=== PATIENT | female | born 1955 | race Caucasian/White ===

== ENCOUNTER 2024-02-20 22:10 | Inpatient (IN) | payer MEDICARE, BC, SELFPAY ==
[2024-02-20] VITALS (8 sets, daily range): BP systolic 122–138; BP diastolic 55–90; BMI 23.2; BMI 22.2
[2024-02-20 17:05] LABS: % Basophils 0.7 % (0-2); % Eosinophils 1.2 % (0-6); % Immature Granulocytes 0.4 % (0-0.5); % Lymphocytes 25.1 % (20.5-51.1); % Monocytes 9.5 % (1.7-9.3); % Neutrophils 63.1 % (42.2-75.2); Absolute Basophils 0.1 10^3/uL (0-0.2); Absolute Eosinophils 0.1 10^3/uL (0-0.7); Absolute Lymphocytes 1.9 10^3/uL (1.2-3.4); Absolute Monocytes 0.7 10^3/uL (0.1-0.6); Absolute Neutrophils 4.9 10^3/uL (1.4-6.5); Hematocrit 30.8 % (37.0-47.0); Hemoglobin 10.8 g/dL (12.0-16.0); Mean Corp Hgb Conc. 35.1 g/dL (33.0-37.0); Mean Corpuscular Hgb 30.9 pg (27.0-31.0); Mean Platelet Volume 8.4 fL (7.4-10.4); Nucleated Red Blood Cells % 0 %; Platelet Count 365 10^3/uL (130-400); Red Cell Dist. Width 15.9 % (11.5-14.5); White Blood Cell Count 7.7 10^3/uL (4.8-10.8)
--- NOTE | 2024-02-20 17:27 | ED.GENMED ---
History of Present Illness
General
Chief Complaint: Fainting/Passed Out
Time Seen by Provider: 02/20/24 17:11
History of Present Illness
History of Present Illness:
Patient is a 68-year-old woman with history of hypertension, hypothyroidism presenting to the emergency department for syncopal event. Patient states that she was walking at the liquor store when she thought she tripped and fell. However
bystanders stated that patient passed out. Bystanders brought her to the bench. While they were talking to her patient had another syncopal event. Patient denies any lightheadedness dizziness tunnel vision. No numbness tingling chest pain
palpitations or weakness. This is never happened to her before. She does state that she feels a little dehydrated but denies any positional lightheadedness or dizziness today. At this time patient is back to her usual state of health. She does
state that she drinks 3 drinks a day but has not had any today. She does not feel that she is in withdrawal. No drug use. No nausea vomiting melena or hematochezia. She did not hit her head with the syncopal event. She is not on blood thinners.
Phy Exam
Physical Exam
Physical Exam:
GENERAL: in no acute distress
HEENT: normocephalic, extraocular movements intact, dry oral mucosa
NECK: normal inspection
RESPIRATORY: no respiratory distress, clear to auscultation bilaterally
CARDIOVASCULAR: regular rate and rhythm
ABDOMEN/: soft, non-distended, non-tender to palpation, no rebound or guarding
EXTREMITIES: non-tender, no edema/swelling
NEUROLOGIC: alert and oriented x 3, cranial nerves II-XII intact, right upper extremity strength 5/5, left upper extremity strength 5/5, right lower extremity strength 5/5, left lower extremity strength 5/5, normal sensation to light touch, normal
[id number] and lnkk-uk-[id number], gait not tested formally
SKIN: warm
Course
Orders/Labs/Results
Orders:
Orders
02/20/24 16:41
Electrocardiogram (*1) Urgent
Reason for Study: Syncope
EKG- Treatment ONCE
02/20/24 16:52
Complete Blood Count/With Diff Urgent
02/20/24 18:18
Comprehensive Metabolic Panel Urgent
Troponin I Urgent
Abnormal Lab Results
02/20/24
16:52
RBC 3.50 L 10^6/uL
(4.20-5.40)
Hgb 10.8 L g/dL
(12.0-16.0)
Hct 30.8 L %
(37.0-47.0)
RDW 15.9 H %
(11.5-14.5)
Absolute Monos (auto) 0.7 H 10^3/uL
(0.1-0.6)
Monocytes % 9.5 H %
(1.7-9.3)
02/20/24 16:52
Vital Signs
Initial and Last Documented VS:
Initial Vital Signs
BP
130/60
02/20/24 16:40
Last Documented Vital Signs
Temp Pulse Resp BP Pulse Ox
97.6 F 85 12 133/55 100
02/20/24 16:43 02/20/24 17:45 02/20/24 17:45 02/20/24 17:00 02/20/24 16:43
MDM/Problems Addressed
Differential Diagnosis Includes:
Patient is a 68-year-old woman with history of hypertension, hypothyroidism presenting to the emergency department with a syncopal event. Vitals are unremarkable and exam does show dry oral mucosa with no neurodeficits. Patient does appear
dehydrated on exam but denies any prodrome to suggest orthostatic syncope. Given that she did not have any prodrome with both syncopal events concern for cardiac etiology. History and exam are consistent with vasovagal. Blood work obtained prior
to elevation is unremarkable. EKG per my interpretation with no prolonged QT, delta waves, arrhythmia. Patient will need admission for monitoring.
*Critical Care Note
Total Time (30-74mins, 75-104mins- exclusive of procedures): Not Applicable
Update Note
Update Note:
CBC unremarkable. CMP has hemolyzed multiple times. Discussed with hospitalist who accepted patient for admission with CMP pending.
ED Attending Note
-
Portions of this chart may have been created with voice recognition software.� Occasional wrong word or��sound alike� substitutions may have occurred due to the inherent limitations of voice recognition software.
Discharge Plan
Departure
Patient Disposition: Admit
Date of Disposition: 02/20/24
Time of Disposition: 18:29
Presentation/result/management discussed w/ accepting MD/DO: Hospitalist
Discharge Problem:
Syncope
Prescriptions:
No Action
levothyroxine 50 mcg Tablet
50 mcg PO DAILY
ibuprofen [Advil] 200 mg Tablet
200 mg PO Q6HPRN PRN (Reason: mild pain)
lisinopril 30 mg Tablet
30 mg PO HS
folic acid 1 mg Tablet
1 mg PO DAILY
escitalopram oxalate 20 mg Tablet
20 mg PO DAILY
cholecalciferol (vitamin D3) [Vitamin D3] 25 mcg (1,000 unit) Tablet
25 mcg PO DAILY
Dupixent Pen 300 mg/2 mL Pen Injector
300 mg SC Q2W
Referrals:
Symone Morrell DO [Family Provider] -
Interventions
Interventions:
*Risk Screen - Suicide Last Done: 02/20/24 16:43
*General Assessment Last Done: 02/20/24 16:43
*Neglect/Abuse Screening Last Done: 02/20/24 16:43
*ED COVID-19 Vaccine History Last Done: 02/20/24 16:43
ED- Cardiac Assessment Last Done: 02/20/24 16:43
ED- Neurological Assessment Last Done: 02/20/24 16:43
Discharge Date and Time
Print Language: LAO
[2024-02-20 18:58] LABS: Urine Albumin Negative (Neg - Trace); Urine Bilirubin Negative (Negative); Urine Character Clear (Clear); Urine Color Yellow; Urine Glucose Negative (Negative); Urine Ketone Negative (Negative); Urine Leukocyte Negative (Negative); Urine Nitrite Negative (Negative); Urine Occult Blood Negative (Negative); Urine Specific Gravity 1.005 (<1.030); Urine Urobilinogen Negative (Neg - 1+)
--- NOTE | 2024-02-20 19:09 | HPS.HSE ---
Family Physician
-
Family Physician: Symone Morrell DO
Chief Complaint
-
Syncope, right wrist pain, fall
History of Present Illness
68-year-old female reports she was walking out of the liquor store holding several bottles of wine and her right arm when she thought she tripped and fell however by standards had reported to to EMS the patient passed out and they brought her to a
bench where she had another syncopal episode. Patient reports this is never happened to her before. She complains of right wrist pain that has swelling, ecchymosis and obvious deformity. She is right-handed. She has followed with [facility]
Ortho Dr. Mariano in the past for knee arthritis. She drinks daily 18 ounces(three 6 ounce cups) of Sauvignon rachael or 36 ounce of gutierrez light (3--12 ounce bottles ). She reports her last drink was at midnight after watching the [employer] game last
night. She typically only goes about 7 hours in between her last alcohol consumption, although today it was 15 hours before having this syncopal episode. She reports waking up in the mornings with hand tremors that are not associated with her
baseline anxiety. She reports drinking heavily like this greater than 10 years. She has been having balance issues for which she just finished physical therapy with [facility] physical therapy 1 week ago. She denies any headache ,lightheadedness,
dizziness, chest pain, palpitations, shortness of breath, cough, weakness, fever, sore throat, abdominal pain, nausea, vomiting, diarrhea, urinary symptoms, hematochezia. She has past medical history of hypertension, hypothyroidism, eczema
Medical History
Past Medical History
Past Medical History: Reports Other
Additional Past Medical History:
Hypothyroidism
HTN�benign
Alcohol abuse
Depression
Eczema
Left knee arthritis
Past Surgical History: Reports Other
Additional Past Surgical History:
[place] teeth extraction
Social History
Tobacco: Former Smoker (1/2 pack a day quit 1981)
Alcohol: Daily (daily 18 ounces(three 6 ounce cups) of Sauvignon rachael or 36 ounce of gutierrez light (3--12 ounce bottles ). )
Drug: None
Personal:
Living: With Family ( Juan at bedside)
Employment: Retired
Family History
Family History: Other (Mother living age 96 history of hypertension, hypothyroidism, father 89 history of hyperlipidemia possible GA)
Allergies / Home Medications
Allergies reflects when Allergies were last updated in Where.
Home Medications with original date entered in Where
Allergy/Medication List:
Home Medications
cholecalciferol (vitamin D3) 25 mcg (1,000 unit) tablet (Vitamin D3) 25 mcg PO DAILY 02/20/24
dupilumab 300 mg/2 mL subcutaneous pen injector (Dupixent) 300 mg SC Q2W 02/20/24
escitalopram oxalate 20 mg tablet 20 mg PO DAILY 02/20/24
folic acid 1 mg tablet 1 mg PO DAILY 02/20/24
ibuprofen 200 mg tablet (Advil) 200 mg PO Q6HPRN PRN mild pain 02/20/24
levothyroxine 50 mcg tablet 50 mcg PO DAILY 02/20/24
lisinopril 30 mg tablet 30 mg PO HS 02/20/24
Review of Systems
-
History Source: Patient and Family ( Juan at bedside)
A 12 point ROS was completed and negative except as noted: Yes
Constitutional: Denies Fever, Fatigue or Chills
EENT: Denies Sore Throat or Runny Nose
Respiratory: Denies Cough or Trouble Breathing
Cardiac: Reports Syncope; Denies Chest Pain, Diaphoresis or Palpitations
Abdomen/GI: Denies Abdominal Pain, Nausea, Vomiting, Diarrhea, Constipated, Bloody Stools or Black Stools
: Denies Dysuria, Frequency, Flank Pain, Incontinence, Difficulty Voiding, Urgency or Bleeding
Musculoskeletal: Reports Joint Pain (Right wrist with swelling, deformity, circumferential ecchymosis)
Skin: Denies Itching or Rash
Neurological: Denies Dizzy, Headache or Weakness
Endocrine: Reports No Symptoms
Hematologic/Lymphatic: Reports No Symptoms
Psych: Reports Calm
Physical Exam
Vital Signs
Vital Signs
Temp Pulse Resp BP Pulse Ox
97.6 F 91 17 134/64 100
02/20/24 16:43 02/20/24 18:45 02/20/24 18:45 02/20/24 18:00 02/20/24 16:43
Physical Exam
General: No Apparent Distress, Conversant and Pain (Right wrist); No Fever or Chills
HEENT: NormoCephalic, Anicteric, Moist mucous membranes, Atraumatic, PERRLA, [place] Conjunctivae and Neck Nontender
Respiratory: Clear; No Wheezes, Rales or Rhonchi
Cardiac: S1/S2 and Regular Rhythm; No Murmur, Rub or Peripheral Edema
Breast: Deferred by me
GI: Soft, Non Tender, Non Distended, Normal Bowel Sounds and No Hepatosplenomegaly
Rectal: Deferred by Provider
Genito-urinary: Deferred by me
Musculoskeletal: No Clubbing, No Cyanosis, No Edema and Other (Right wrist with swelling, deformity over radius and ulna, circumferential ecchymosis, +2 radial pulse, distal sensation intact fingers pink and warm)
Skin: Warm and Dry; No Rash or Jaundice
Neuro: AO x 3, Nonfocal/grossly intact, Cranial Nerves Intact, No Sensory Deficits and Other (Right wrist limited range of motion secondary to wrist deformity likely fracture from fall); No Slurred Speech, Facial Droop, Tremors or Sedated
Psych: Calm
Laboratory Results
-
02/20/24 16:52
Laboratory Results
Total Bilirubin Cancelled 02/20/24 17:57
AST Cancelled 02/20/24 17:57
ALT Cancelled 02/20/24 17:57
Alkaline Phosphatase Cancelled 02/20/24 17:57
Troponin I Cancelled 02/20/24 17:57
Data Reviewed
-
Diagnostic Radiology: Report Reviewed by me
CT Scan: Report Reviewed by me
Lab Data: Labs Reviewed by me
Impression/Plan
-
Impression/plan:
Admit to telemetry
#Acute Syncope likely alcohol withdrawal/orthostatic hypotension
#Syncope x 2 witnessed by bystanders
BP 134/64
-Check TSH with free T4 reflex
-Check UDS, alcohol level
-Orthostatic vitals
-CT head nml
EKG NSR 74 bpm, QTc 452 MS otherwise normal, no previous EKGs
CT head: Findings compatible with diffuse cortical atrophy with old nonspecific white matter changes
# Acute Alcohol withdrawal/abuse
-Patient typically drinks DAILY 18 ounces (6 ounce 3 cups )of Sauvignon rachael 11-15% etoh content or 3 gutierrez liters 36 ounces 3.4%
Last drink was 15 hours prior to his syncopal event she typically only goes 7 hours in between drinking
-She often reports waking up every morning with tremors
-Will check B12, GGT,
-MSAS screen with protocol IV thiamine IV folate
-EtOH level 38
#Fall with right wrist radius/ulnar/ulnar styloid fracture and angulation
-Consult [facility] Orth[facility] patient has follow with Dr. Mariano in the past for left knee arthritis
Consult placed to [facility] Dr. Kyle Dan
-N.p.o. after midnight for poss OR in Am if stable from alcohol withdrawal
-ice as needed, elevate
-Posterior OCL splint to be applied to wrist
-Tylenol mild pain, Percocet moderate pain
X-ray right wrist:
Comminuted impacted fracture of the distal right radius with dorsal angulation of the major distal fracture fragment and accompanying
comminuted fracture of the distal right ulna including the ulna styloid.
#Chronic balance issues per patient
-Reports finished physical therapy 1 week ago with [facility] physical [facility]
-Advised patient her chronic alcohol abuse can contribute to balance issues along with memory impairment as she was unaware of this
#Anemia-normocytic
Hgb 10.8, MCV 88
-Check iron panel, B12, folate
#HTN�benign
BP 134/64
-Check orthostatics
-Continue lisinopril 30 mg at bedtime with hold parameters
#Depression
-Continue Lexapro 20 mg daily
#Eczema
Patient on Dupixent 300 mg SQ every 2 weeks unknown last dose
DVT prophylaxis
Scd's
Full code
--- NOTE | 2024-02-20 20:36 | W.PN.UPDATE ---
Update Note
Progress Note Update
This is an addendum to the H&P written by Lucía Corley on 02/20/2024. Patient seen and examined independently with [employer].
68-year-old female past medical history of alcohol use disorder, anemia, hypertension, depression, eczema, presenting with syncopal episode as she was walking out of liquor store. She fell forward injuring her right wrist.
Patient clearly in alcohol withdrawal with tremors. Syncope likely secondary to excessive alcohol use. No GI symptoms. Thiamine and folate. IV fluids. Alcohol withdrawal protocol.
Alcohol level pending. BMP pending. CBC shows hemoglobin of 10.8 without prior for comparison.
X-ray of the wrist shows comminuted impacted fracture of the distal right radius with dorsal angulation of the medial distal fracture fragment accompanying comminuted fracture of the distal right ulna in the ulna styloid. Splint and Ortho consulted.
Tylenol and Percocet for pain as needed.
[2024-02-20] MEDS: TYLENOL 650 MG PO (21:11)
[2024-02-20 21:25] LABS: GGTP 81 U/L (12-43); Magnesium 1.4 mg/dl (1.6-2.3); Phosphorus 3.4 mg/dl (2.5-4.5)
[2024-02-20 21:26] LABS: ALT (SGPT) 54 U/L (0-35); AST (SGOT) 171 U/L (14-36); Albumin 4.1 g/dl (3.5-5.0); Alkaline Phosphatase 88 U/L (38-126); Blood Urea Nitrogen 9 mg/dl (7-17); Calcium 8.9 mg/dl (8.4-10.2); Carbon Dioxide 17 mmol/L (22-30); Chloride 93 mmol/L (98-107); Estimated Creatinine Clearance 63 ml/min; Glucose 70 mg/dl (70-99); Iron 199 ug/dl (37-170); Potassium 4.8 mmol/L (3.5-5.1); Sodium 130 mmol/L (135-145); Total Bilirubin 0.9 mg/dl (0.2-1.3); Total Protein 6.8 g/dl (6.3-8.2); eGFR > 60.00
[2024-02-20 21:31] LABS: Alcohol 38 mg/dl
[2024-02-20 21:32] LABS: B-Hydroxybutyrate 1.56 mmol/L (0.02-0.27); Troponin I < 0.012 ng/ml
[2024-02-20 21:33] LABS: Digoxin < 0.4 ng/ml (0.8-2.0)
[2024-02-20 21:36] LABS: Percent Saturation 87 % (20-50); Total Iron Binding Capacity 228 ug/dl (265-497)
[2024-02-20 21:42] LABS: INR 0.99; PT 12.9 Sec (11.4-14.6)
[2024-02-20 21:43] LABS: APTT 26.9 Sec (23.4-35.0)
[2024-02-20] MEDS: PERCOCET 5/325 1 TABLET PO (21:45)
[2024-02-20 21:59] LABS: TSH Reflex To Free T4 2.88 uIU/ml (0.47-4.68)
[2024-02-20 22:32] LABS: Folate > 20.0 ng/ml (2.76-20); Vitamin B12 469 pg/ml (239-931)
[2024-02-20] MEDS: ATIVAN 1 MG IV (22:44)
[2024-02-21] VITALS (11 sets, daily range): BP systolic 104–154; BP diastolic 64–99; PULSE 83–144; O2SAT 100
[2024-02-21] MEDS: MAGNESIUM SULFATE 100 IV (00:51)
[2024-02-21] MEDS: THIAMINE INJECTION 200 MG IV ×4 (00:59→23:06)
[2024-02-21] MEDS: NSS 1000 IV ×2 (04:45→14:40)
[2024-02-21] MEDS: SYNTHROID 50 MCG PO (05:33)
--- NOTE | 2024-02-21 06:07 | CON.ORTHO ---
Consultation
-
Date/Time Consultation Requested: 02/20/2024 @ 20:34
Date/Time Consultation Performed: 02/21/2024 @ 5:55 AM
Requesting Provider: Lucía Corley CRNP
Performing Provider: Pradeep Guy PA-C for Dr. Kyle Dan
Reason for Consultation: Right Distal Radius Fracture
Consultation - Orthopedics
History
Orthopedic Surgery Note
CC: Right wrist pain.
HPI: The patient is a 68-year-old [id number] female with a past medical history significant for alcohol use disorder, anemia, hypertension, depression, and eczema who presented to [facility] Emergency Department yesterday evening
after a syncopal episode as she was walking out of the liquor store. She reports falling on an outstretched right hand. She was transferred to the ED via EMS where obvious deformity was noted about the right wrist. X-rays of the right wrist were
obtained, revealing a right distal radius and ulna fracture. She complains of right wrist pain, swelling, and bruising. It is reported that her last drink was at midnight after watching the [employer] game. She denies any head trauma. She was placed
into a splint. Orthopedic surgery was consulted regarding management of her right wrist fracture. She denies any paresthesias.
PMH/PSH: Hypothyroidism, hypertension, alcohol abuse, depression, eczema, left knee osteoarthritis, wisdom tooth extraction.
Medications: Reviewed.
Family History: Family history was reviewed. Noncontributory
Social history: Former smoker (1/2 pack a day, quit 1981), daily alcohol consumption (daily 18 ounces (three 6 ounce cups) of Sauvignon rachael or 36 ounce of gutierrez light (3--12 ounce bottles). Lives with family.
Exam
General appearance: Pleasant. No acute distress.
Head: Normocephalic/atraumatic
Nose: No lesions or discharge.
Skin: No obvious rashes or open wounds
Lungs: No audible wheezing, no cough or sputum production
Musculoskeletal:
RUE:
Physical examination of the right wrist reveals a well-fitted splint. Capillary refill is less than 2 seconds and sensation is intact to light touch.
Imaging:
X-rays: CR Wrist - RIGHT Min 3 Views was obtained at [facility] on hours made available for my review today. Findings: Diffuse osteopenia is noted. There is a comminuted impacted fracture of the distal right radius with dorsal
angulation of the major distal fracture fragment and an accompanying comminuted fracture of the right distal ulna including the ulnar styloid. Marked degenerative changes are seen about the right first carpal-metacarpal joint. Impression:
Comminuted impacted fracture of the distal right radius with dorsal angulation of the major distal fracture fragment and accompanying comminuted fracture of the distal right ulna including the ulnar styloid.
Assessment: 68-year-old [id number] female with a past medical history significant for alcohol use disorder, anemia, hypertension, depression, and eczema with a right distal radius and ulna fracture.
Plan: Unfortunately, Oanh has sustained a comminuted impacted fracture of the right distal radius with dorsal angulation of the major fracture fragment and accompanying comminuted fracture of the right distal ulna including the ulna styloid after a
mechanical fall yesterday evening. Treatment options were discussed with the patient today, and I do recommend operative intervention to improve overall alignment and increase healing potential. The risks, benefits, potential complications were
reviewed. We will plan for right distal radius ORIF under the direction of Dr. Barrientos today, 02/21/2024, as long as stable medically/from alcohol withdrawal. Surgical and blood consents obtained and placed in chart. Ancef and irrigation on-call to
the OR. Patient to remain NPO. She is to remain nonweightbearing to her RUE. Continue with pain medications as needed. Hemoglobin this AM pending. Hemoglobin from 02/20/24 10.6. Orthopedic surgery will continue to follow along.
Allergies / Home Medications
Allergy/AdvReac Type Severity Reaction Status Date / Time
No Known Allergies Allergy Unverified 02/20/24 21:04
�Medication �Instructions �Recorded
cholecalciferol (vitamin D3) 25 25 mcg PO DAILY 02/20/24
mcg (1,000 unit) tablet (Vitamin
D3)
dupilumab 300 mg/2 mL subcutaneous 300 mg SC Q2W 02/20/24
pen injector (Dupixent)
escitalopram oxalate 20 mg tablet 20 mg PO DAILY 02/20/24
folic acid 1 mg tablet 1 mg PO DAILY 02/20/24
ibuprofen 200 mg tablet (Advil) 200 mg PO Q6HPRN PRN mild pain 02/20/24
levothyroxine 50 mcg tablet 50 mcg PO DAILY 02/20/24
lisinopril 30 mg tablet 30 mg PO HS 02/20/24
Vital Signs / Lab Results
Temp Pulse Resp BP Pulse Ox
98.2 F 89 16 138/72 97
02/21/24 03:15 02/21/24 03:15 02/21/24 03:15 02/21/24 03:15 02/21/24 03:15
[2024-02-21 06:29] LABS: Hematocrit 28.3 % (37.0-47.0); Hemoglobin 9.9 g/dL (12.0-16.0); Mean Corpuscular Hgb 31.6 pg (27.0-31.0); Mean Corpuscular Volume 90.4 fL (81.0-99.0); Mean Platelet Volume 8.6 fL (7.4-10.4); Platelet Count 298 10^3/uL (130-400); Red Blood Cell Count 3.13 10^6/uL (4.20-5.40); Red Cell Dist. Width 15.7 % (11.5-14.5); White Blood Cell Count 8.9 10^3/uL (4.8-10.8)
[2024-02-21 06:54] LABS: ALT (SGPT) 51 U/L (0-35); AST (SGOT) 129 U/L (14-36); Alkaline Phosphatase 86 U/L (38-126); Blood Urea Nitrogen 11 mg/dl (7-17); Calcium 9.1 mg/dl (8.4-10.2); Carbon Dioxide 17 mmol/L (22-30); Chloride 96 mmol/L (98-107); Estimated Creatinine Clearance 63 ml/min; Glucose 54 mg/dl (70-99); Magnesium 3.7 mg/dl (1.6-2.3); Potassium 4.8 mmol/L (3.5-5.1); Sodium 129 mmol/L (135-145); Total Cholesterol 286 mg/dl (50-199); Total Protein 6.6 g/dl (6.3-8.2); Triglyceride 32 mg/dl (10-149); Very Low Density Lipoprotein 6 mg/dl (0-30); eGFR > 60.00
[2024-02-21 07:18] LABS: HDL Cholesterol > 220 mg/dl
[2024-02-21 08:02] LABS: Glucose - Point of Care 61 mg/dl (70-99)
[2024-02-21] MEDS: DEXTROSE 50% SYRINGE 12.5 GRAMS IV (08:03)
[2024-02-21] MEDS: PERCOCET 5/325 1 TABLET PO (08:22)
[2024-02-21] MEDS: LEXAPRO 20 MG PO (08:22)
[2024-02-21] MEDS: VITAMIN D3 (cholecalciferol) 25 MCG PO (08:22)
[2024-02-21] MEDS: FOLVITE 1 MG PO (08:22)
[2024-02-21 08:32] LABS: Glucose - Point of Care 141 mg/dl (70-99)
--- NOTE | 2024-02-21 10:09 | W.PN.HOSP.TC ---
Today's Communication/Plan
-
See plan
Assessment / Plan
Assessment / Plan
Impression:
Syncope suspect secondary to alcohol intoxication.
Severe alcohol use disorder at risk for alcohol withdrawal.
Hyponatremia.
Mild metabolic ketoacidosis/contraction hypochloremic alkalosis
EtOH hepatitis.
Right wrist radius fracture secondary to trauma.
Other conditions:
Chronic normocytic anemia
Benign hypertension.
Depression.
Eczema
Plan:
Syncopal event
Patient reports prodrome being lightheaded prior to passing out
Suspect related to alcohol intoxication. Reported alcohol level 38 upon presentation
She has no prior cardiac conditions
Hemodynamically stable since admission
ECG with normal sinus rhythm with normal QTc
Negative cardiac markers
No reported seizures
CT scan of the head with no acute abnormalities
TSH within normal limits
Continue telemetry monitoring
Orthostatic vitals
Will check echocardiogram for completeness.
Fall with right wrist right use/ulnar/ulnar styloid fracture and angulation per
Orthopedic input appreciated
Plan is for ORIF on 02/20
Medically optimized for surgical intervention.
Hemodynamically stable.
Mild metabolic abnormalities being corrected.
Normal coagulation profile.
That would be a good window of opportunity for planned ORIF of the right wrist with close preventive monitoring including alcohol withdrawal protocol.
EtOH use disorder
At risk for DT.
Continue MSAS with lorazepam
Low threshold to reinstate phenobarbital if breakthrough withdrawal symptoms while on the lorazepam.
Continue IV thiamine.
social services assistant consultation
Alcoholic ketoacidosis
Contraction alkalosis.
Mild hyponatremia sodium 130�129.
Continue isotonic IV fluids. Follow BMP.
Mild alcoholic hepatitis
No stigmata of cirrhosis on exam.
Preserved hepatic function with normal coagulation profile
Hypoglycemia likely effect of lack of oral intake at least 24 hours prior to presentation and current n.p.o. status.
Monitor closely.
Follow LFT
#Chronic balance issues per patient
-Reports finished physical therapy 1 week ago with [facility] physical [facility]
-Advised patient her chronic alcohol abuse can contribute to balance issues along with memory impairment as she was unaware of this
#Anemia-normocytic
Hgb 10.8, MCV 88
-Check iron panel, B12, folate
#HTN�benign
BP 134/64
-Check orthostatics
-Hold lisinopril 30 mg monitoring for hypotension
#Depression
-Continue Lexapro 20 mg daily
#Eczema
Patient on Dupixent 300 mg SQ every 2 weeks unknown last dose
DVT prophylaxis
Scd's
Full code
Anticipated Discharge: > 48 hours
Subjective/Interval History
-
Date of Service: February 21, 2024
Objective Data
-
Labs:
Laboratory Results
02/21/24
05:41
WBC 8.9
Hgb 9.9 L
Hct 28.3 L
Plt Count 298
Sodium 129 L
Potassium 4.8
Chloride 96 L
Carbon Dioxide 17 L
BUN 11
Creatinine 0.7
Glucose 54 L*
Calcium 9.1
Total Bilirubin 1.0
AST 129 H
ALT 51 H
Alkaline Phosphatase 86
Vital Signs:
Vital Signs
Temp Pulse Resp BP Pulse Ox
97.9 F 87 16 143/77 98
02/21/24 07:35 02/21/24 07:35 02/21/24 07:35 02/21/24 07:35 02/21/24 07:35
I&O
02/20/24 02/21/24 02/22/24
06:59 06:59 06:59
Intake Total 100 / 100
Balance 100 / 100
Physical Exam
-
General: Well Developed and No Apparent Distress
HEENT: Normocephalic, Atraumatic and Moist Mucous Membranes
Respiratory: Clear to Auscultation
Cardiac: Regular Rhythm and S1/S2; Negative Murmur, Rub or Gallop
GI: Soft, Nontender, Nondistended and Normal Bowel Sounds; Negative Organomegaly
Rectal: Deferred by Provider
Musculoskeletal: No Clubbing, No Cyanosis and No Edema
Skin: Negative Rash
Neuro: Awake, Alert, Oriented, AO x 3, Tremors (Resting, mild bilaterally at the upper extremities) and Nonfocal/Grossly Intact
[2024-02-21 10:37] LABS: Glucose - Point of Care 80 mg/dl (70-99)
--- NOTE | 2024-02-21 13:04 | W.IMMPOSTOP ---
Surgical Immed Post Op Note
-
Primary Surgeon: Iliana
Pre-op Diagnosis: Right distal radius/ ulna fracture
Post-op Diagnosis: Same
Procedure Performed: Right distal radius ORIF
Anesthesia Type: General
Specimen / Cultures: None
Estimated Blood Loss: 2cc
Complications: None
Operative Findings: Dictated [id number]
Plan:
- NWB RUE
- Keep splint until follow up in the office in 10-14 days
- OK to move shoulder, elbow, fingers as tolerated
- Dispo per primary team
--- NOTE | 2024-02-21 14:01 | PTCARENOTE ---
Pt arrived to 2S in bed. Full assessment completed. IVF infusing per order. RUE NWB status reviewed with pt, pt verbalized understanding. RUE maintained in splint, able to wiggle fingers. RUE neurovascular assessment WDL. Weaned to room air. Pt
educated on need to ring for assistance getting up OOB, verbalized understanding. Bed locked and in the lowest position, safety maintained. Oriented to room and call rahman, pt reviewing menu to order lunch.
[2024-02-21] MEDS: ROXICODONE 10 MG PO ×2 (15:07→20:07)
--- NOTE | 2024-02-21 18:06 | PTCARENOTE ---
Pt not maintaining NWB status to RUE. Dr Young notified and instructed RN to reapply sling to RUE. Care remains ongoing.
[2024-02-21] MEDS: ANCEF 5 IV (20:07)
[2024-02-21] MEDS: COLACE 100 MG PO (20:07)
[2024-02-22] VITALS (10 sets, daily range): BP systolic 111–169; BP diastolic 54–88; PULSE 100–105; O2SAT 96
[2024-02-22] MEDS: NSS IV (02:43)
[2024-02-22] MEDS: ANCEF 5 IV (04:29)
[2024-02-22] MEDS: NSS 1000 IV (05:14)
[2024-02-22] MEDS: SYNTHROID 50 MCG PO (05:14)
[2024-02-22 07:10] LABS: Hematocrit 23.8 % (37.0-47.0); Hemoglobin 8.3 g/dL (12.0-16.0); Mean Corp Hgb Conc. 34.9 g/dL (33.0-37.0); Mean Corpuscular Hgb 31.4 pg (27.0-31.0); Mean Corpuscular Volume 90.2 fL (81.0-99.0); Mean Platelet Volume 9.1 fL (7.4-10.4); Platelet Count 244 10^3/uL (130-400); Red Blood Cell Count 2.64 10^6/uL (4.20-5.40); Red Cell Dist. Width 15.6 % (11.5-14.5); White Blood Cell Count 10.8 10^3/uL (4.8-10.8)
[2024-02-22 07:34] LABS: ALT (SGPT) 29 U/L (0-35); AST (SGOT) 55 U/L (14-36); Albumin 3.3 g/dl (3.5-5.0); Alkaline Phosphatase 70 U/L (38-126); Blood Urea Nitrogen 9 mg/dl (7-17); Calcium 8.4 mg/dl (8.4-10.2); Carbon Dioxide 24 mmol/L (22-30); Chloride 95 mmol/L (98-107); Estimated Creatinine Clearance 73 ml/min; Glucose 120 mg/dl (70-99); Potassium 4.1 mmol/L (3.5-5.1); Sodium 129 mmol/L (135-145); Total Bilirubin 0.6 mg/dl (0.2-1.3); Total Protein 5.8 g/dl (6.3-8.2); eGFR > 60.00
[2024-02-22] MEDS: COLACE 100 MG PO (07:48)
[2024-02-22] MEDS: LEXAPRO 20 MG PO (07:48)
[2024-02-22] MEDS: VITAMIN D3 (cholecalciferol) 25 MCG PO (07:48)
[2024-02-22] MEDS: THIAMINE INJECTION 200 MG IV ×3 (07:48→23:16)
[2024-02-22] MEDS: FOLVITE 1 MG PO (07:48)
--- NOTE | 2024-02-22 10:12 | CM ---
Reviewed the chart notes and spoke with the patient at the bedside. The patient resides with her spouse in a three story home with two steps to enter. The patient has a master bedroom on the first level. The patient reports no DME or SNF in the
past, but did have VN many years ago after child . The patient confirmed her pharmacy of choice is the [facility]. CM continues to be available to patient/family and is monitoring medical plan for needs at discharge.
Plan: Discharge to home when medically stable. The patient's spouse will provide transportation. No needs anticipated.
--- NOTE | 2024-02-22 10:50 | W.PN.UPDATE ---
Update Note
Progress Note Update
Ms. Barnard is POD 1 following her ORIF right distal radius fracture. She is resting comfortably in bed this morning, and reports her pain continues to improve. She has no questions or concerns at this time.
Directed exam of the right upper extremity reveals surgical splint in place. Expected post-operative edema and ecchymosis throughout the fingers. Patient able to wiggle fingers. Sensation intact to light touch. Capillary refill <2 seconds.
--NWB to RUE. May perform ROM of shoulder and elbow.
--Maintain splint until follow up visit.
--Pain control as needed.
--D/c once medically stable.
[2024-02-22] MEDS: ATIVAN 1 MG PO (12:45)
--- NOTE | 2024-02-22 16:08 | W.PN.HOSP.TC ---
Today's Communication/Plan
-
Continue supportive care
Physical therapy assessment.
Monitor hemoglobin.
Follow BMP for hyponatremia.
Alcohol withdrawal protocol.
Assessment / Plan
Assessment / Plan
Impression:
Syncope suspect secondary to alcohol intoxication.
Severe alcohol use disorder at risk for alcohol withdrawal.
Hyponatremia.
Mild metabolic ketoacidosis/contraction hypochloremic alkalosis
EtOH hepatitis.
Right wrist radius fracture secondary to trauma.
Other conditions:
Chronic normocytic anemia
Benign hypertension.
Depression.
Eczema
Plan:
Syncopal event
Patient reports prodrome being lightheaded prior to passing out
Suspect related to alcohol intoxication. Reported alcohol level 38 upon presentation
She has no prior cardiac conditions
Hemodynamically stable since admission
ECG with normal sinus rhythm with normal QTc
Negative cardiac markers
No reported seizures
CT scan of the head with no acute abnormalities
TSH within normal limits
Continue telemetry monitoring
Orthostatic vitals
Will check echocardiogram for completeness.
Fall with right wrist right use/ulnar/ulnar styloid fracture and angulation per
Orthopedic input appreciated
Status post ORIF on 02/20
Medically optimized for surgical intervention.
Hemodynamically stable.
Mild metabolic abnormalities being corrected.
Normal coagulation profile.
That would be a good window of opportunity for planned ORIF of the right wrist with close preventive monitoring including alcohol withdrawal protocol.
Anemia, likely chronic with dilutional effect. Hemoglobin trending down 10�8. Monitor closely.
EtOH use disorder
At risk for DT.
Continue MSAS with lorazepam
Low threshold to reinstate phenobarbital if breakthrough withdrawal symptoms while on the lorazepam.
Continue IV thiamine.
gate services supervisor consultation
Alcoholic ketoacidosis
Contraction alkalosis.
Mild hyponatremia sodium 130�129.
Continue isotonic IV fluids. Follow BMP.
Mild alcoholic hepatitis
No stigmata of cirrhosis on exam.
Preserved hepatic function with normal coagulation profile
Hypoglycemia likely effect of lack of oral intake at least 24 hours prior to presentation and current n.p.o. status.
Monitor closely.
Follow LFT
#Chronic balance issues per patient
-Reports finished physical therapy 1 week ago with fitness physical therapy
-Advised patient her chronic alcohol abuse can contribute to balance issues along with memory impairment as she was unaware of this
#Anemia-normocytic
Hgb 10.8, MCV 88
-Check iron panel, B12, folate
#HTN�benign
BP 134/64
-Check orthostatics
-Hold lisinopril 30 mg monitoring for hypotension
#Depression
-Continue Lexapro 20 mg daily
#Eczema
Patient on Dupixent 300 mg SQ every 2 weeks unknown last dose
DVT prophylaxis
Scd's
Full code
Anticipated Discharge: 24 - 48 hours
Subjective/Interval History
-
Date of Service: February 22, 2024
Objective Data
-
Labs:
Laboratory Results
02/22/24
05:25
WBC 10.8
Hgb 8.3 L
Hct 23.8 L
Plt Count 244
Sodium 129 L
Potassium 4.1
Chloride 95 L
Carbon Dioxide 24
BUN 9
Creatinine 0.6
Glucose 120 H
Calcium 8.4
Total Bilirubin 0.6
AST 55 H
ALT 29
Alkaline Phosphatase 70
Vital Signs:
Vital Signs
Temp Pulse Resp BP Pulse Ox
98.7 F 86 16 121/64 97
02/22/24 14:32 02/22/24 14:32 02/22/24 14:32 02/22/24 14:32 02/22/24 14:32
I&O
02/21/24 02/22/24 02/23/24
06:59 06:59 06:59
Intake Total 5522 / 3126 360 / 360
Output Total
Balance 3125 / 3127 359 / 359
Physical Exam
-
General: Well Developed and No Apparent Distress
HEENT: Normocephalic, Atraumatic and Moist Mucous Membranes
Respiratory: Clear to Auscultation
Cardiac: Regular Rhythm and S1/S2; Negative Murmur, Rub or Gallop
GI: Soft, Nontender, Nondistended and Normal Bowel Sounds; Negative Organomegaly
Rectal: Deferred by Provider
Musculoskeletal: No Clubbing, No Cyanosis and No Edema
Skin: Negative Rash
Neuro: Awake, Alert, Oriented, AO x 3, Tremors (Resting, mild bilaterally at the upper extremities) and Nonfocal/Grossly Intact
[2024-02-22] MEDS: TYLENOL 650 MG PO (19:27)
[2024-02-22] MEDS: COLACE PO (21:09)
[2024-02-23 03:42] LABS: Amphetamines Negative (Negative); Barbiturates Negative (Negative)
[2024-02-23 03:43] LABS: Benzodiazepines Positive (Negative); Buprenorphine Negative (Negative); Cocaine Negative (Negative); Marijuana Negative (Negative); Methadone Negative (Negative); Methamphetamines Negative (Negative); Opiates Negative (Negative); Phencyclidine Negative (Negative); Tricyclic Antidepressants Negative (Negative)
[2024-02-23 04:12] LABS: Fentanyl, Urine Negative (Negative)
[2024-02-23] MEDS: SYNTHROID 50 MCG PO (05:15)
[2024-02-23 05:55] LABS: Hematocrit 23.1 % (37.0-47.0); Hemoglobin 7.9 g/dL (12.0-16.0); Mean Corp Hgb Conc. 34.2 g/dL (33.0-37.0); Mean Corpuscular Hgb 31.1 pg (27.0-31.0); Mean Corpuscular Volume 90.9 fL (81.0-99.0); Mean Platelet Volume 9.3 fL (7.4-10.4); Platelet Count 225 10^3/uL (130-400); Red Blood Cell Count 2.54 10^6/uL (4.20-5.40); Red Cell Dist. Width 15.5 % (11.5-14.5); White Blood Cell Count 9.7 10^3/uL (4.8-10.8)
[2024-02-23 06:15] LABS: ALT (SGPT) 21 U/L (0-35); AST (SGOT) 43 U/L (14-36); Albumin 3.2 g/dl (3.5-5.0); Alkaline Phosphatase 63 U/L (38-126); Blood Urea Nitrogen 8 mg/dl (7-17); Calcium 8.2 mg/dl (8.4-10.2); Carbon Dioxide 23 mmol/L (22-30); Chloride 97 mmol/L (98-107); Estimated Creatinine Clearance 73 ml/min; Glucose 75 mg/dl (70-99); Potassium 3.7 mmol/L (3.5-5.1); Sodium 131 mmol/L (135-145); Total Bilirubin 0.6 mg/dl (0.2-1.3); Total Protein 5.7 g/dl (6.3-8.2); eGFR > 60.00
--- NOTE | 2024-02-23 06:48 | W.PN.ORTHO ---
Today's Communication / Plan
-
Sling, ice and nonweightbearing right upper extremity for clavicle fracture-repeat x-ray 2 weeks to check position
Splint right upper extremity with strict nonweightbearing
Ice with elevation to control swelling and pain
Follow-up orthopedics in 2 weeks for x-rays and suture removal
Orthopedics to sign off for now.
Assessment
.
Distal Motor Intact: Yes
Dressing:
Clean, dry and intact.
Plan
.
Surgery / Date: ORIF right distal radius with left clavicle fx
DVT Prophylaxis: Aspirin
Activity:
Out of bed.
PT/OT
Discharge Plan: SNF
Subjective
.
.:
Patient resting comfortably.
Vital Signs and Labs
.
Vital Signs and Labs:
Lab Results
02/23/24 04:52
02/23/24 04:52
Temp Pulse Resp BP Pulse Ox
98.3 F 86 16 130/67 96
02/22/24 23:15 02/22/24 23:15 02/22/24 23:15 02/22/24 23:15 02/22/24 23:15
PT 12.9 Sec (11.4-14.6) 02/20/24 21:25
INR 0.99 02/20/24 21:25
Physical Exam
-
Splint in place right upper extremity. Mild to moderate edema noted. Ecchymosis present. Sling in place. Minimal discomfort over the clavicle. Shoulder range of motion not assessed secondary to fracture.
[2024-02-23 08:07] VITALS: BP 141/79
[2024-02-23] MEDS: COLACE PO ×3 (08:48→21:09)
[2024-02-23] MEDS: LEXAPRO 20 MG PO (08:48)
[2024-02-23] MEDS: FOLVITE 1 MG PO (08:48)
[2024-02-23] MEDS: VITAMIN D3 (cholecalciferol) 25 MCG PO (08:48)
[2024-02-23] MEDS: THIAMINE INJECTION 200 MG IV ×2 (08:49→16:17)
--- NOTE | 2024-02-23 11:04 | CM ---
Reviewed the chart notes and spoke with the patient at the bedside. Discussed PT/OT recommendation for SNF/rehab prior to transitioning home. Patient not in agreement with that plan. The patient prefers to go home with VN and has the help of her
spouse. Discussed VNs in the area. The patient requested VN. Referral placed. CM continues to be available to patient/family and is monitoring medical plan for needs at discharge.
Plan: Discharge to home with VN services when medically stable.
--- NOTE | 2024-02-23 11:50 | VNURNOTE ---
Home Health Liaison met with patient at bedside to discuss [facility] nurse/therapy, visits, schedule and homebound status. Patient is agreeable and understands that visits at home will be 2-3 x per week to assess and teach medical management.
[facility] brochure provided with contact information. Patient is aware that [facility] will contact them for start of care in 1-2 days after discharge from .
[facility] referral completed in [facility].
--- NOTE | 2024-02-23 12:51 | PN.CDI ---
CDI
- -
CDI:
Physician Documentation Request
Admit Date: 02/20/24 22:10
Dear Doctor Roberto,
Patient admitted with syncope.
02/22 PN, 'Fall with right wrist right use/ulnar/ulnar styloid fracture....Status post ORIF on 02/20.'
02/19 Hgb 10.8
02/22 Hgb 7.9
Based on the above, please clarify, in your progress note, which of the following is the most likely type of anemia you are evaluating, monitoring and/or treating?
Acute blood loss anemia
Insignificant abnormal lab finding
Other
Use of terms such as suspected, likely, concern for, or probable (associated with a specific diagnosis that is being evaluated, monitored, or treated as if it exists) are acceptable and can be coded in the inpatient setting, when documented at the
time of discharge.
Thank you,
Ale ASENCIO,RN,CCDS
CDI Specialist
Available via [place] text
Please use your independent medical judgment in providing your response.
--- NOTE | 2024-02-23 13:02 | PN.CDI ---
CDI
- -
CDI:
Physician Documentation Request
Admit Date: 02/20/24 22:10
Dear Doctor Roberto,
Patient admitted with syncope.
02/22 PN, 'Fall with right wrist right use/ulnar/ulnar styloid fracture....Status post ORIF on 02/20.'
02/19 Hgb 10.8
02/22 Hgb 7.9
Based on the above, please clarify, in your progress note, which of the following is the most likely diagnosis you are evaluating, monitoring and/or treating?
Acute blood loss anemia
Insignificant abnormal lab finding
Other
Use of terms such as suspected, likely, concern for, or probable (associated with a specific diagnosis that is being evaluated, monitored, or treated as if it exists) are acceptable and can be coded in the inpatient setting, when documented at the
time of discharge.
Thank you,
Ale ASENCIO,RN,CCDS
CDI Specialist
Available via [place] text
Please use your independent medical judgment in providing your response.
--- NOTE | 2024-02-23 14:06 | W.PN.HOSP.TC ---
Today's Communication/Plan
-
Physical therapy assessment.
Patient declined offered residential facility for rehab.
So far no evidence of alcohol withdrawal, only mild tremor on exam.
Continue holding lisinopril monitoring for recurrent hypotension
Follow hemoglobin
Assessment / Plan
Assessment / Plan
Impression:
Syncope suspect secondary to alcohol intoxication.
Severe alcohol use disorder at risk for alcohol withdrawal.
Hyponatremia.
Mild metabolic ketoacidosis/contraction hypochloremic alkalosis
EtOH hepatitis.
Right wrist radius fracture secondary to trauma.
Other conditions:
Chronic normocytic anemia
Benign hypertension.
Depression.
Eczema
Plan:
Syncopal event
Patient reports prodrome being lightheaded prior to passing out
Suspect related to alcohol intoxication. Reported alcohol level 38 upon presentation
She has no prior cardiac conditions
Hemodynamically stable since admission
ECG with normal sinus rhythm with normal QTc
Negative cardiac markers
No reported seizures
CT scan of the head with no acute abnormalities
TSH within normal limits
Continue telemetry monitoring
Orthostatic vitals
Will check echocardiogram for completeness.
Fall with right wrist right use/ulnar/ulnar styloid fracture and angulation per
Orthopedic input appreciated
Status post ORIF on 02/20
Medically optimized for surgical intervention.
Hemodynamically stable.
Mild metabolic abnormalities being corrected.
Normal coagulation profile.
That would be a good window of opportunity for planned ORIF of the right wrist with close preventive monitoring including alcohol withdrawal protocol.
Anemia, likely chronic with dilutional effect. Hemoglobin trending down 10�7.9Monitor closely.
EtOH use disorder
At risk for DT.
Continue MSAS with lorazepam
Low threshold to reinstate phenobarbital if breakthrough withdrawal symptoms while on the lorazepam.
Continue IV thiamine.
career services coordinator consultation
Alcoholic ketoacidosis, improved
Contraction alkalosis.
Mild hyponatremia sodium 130�129-131
Observe off IV fluids
Mild alcoholic hepatitis
No stigmata of cirrhosis on exam.
Preserved hepatic function with normal coagulation profile
Hypoglycemia likely effect of lack of oral intake at least 24 hours prior to presentation and current n.p.o. status.
Monitor closely.
Follow LFT
#Chronic balance issues per patient
-Reports finished physical therapy 1 week ago with fitness physical therapy
-Advised patient her chronic alcohol abuse can contribute to balance issues along with memory impairment as she was unaware of this
#HTN�benign
BP 134/64
-Check orthostatics
-Hold lisinopril 30 mg monitoring for hypotension
#Depression
-Continue Lexapro 20 mg daily
#Eczema
Patient on Dupixent 300 mg SQ every 2 weeks unknown last dose
DVT prophylaxis
Scd's
Full code
Anticipated Discharge: 24 - 48 hours
Subjective/Interval History
-
Date of Service: February 23, 2024
Objective Data
-
Labs:
Laboratory Results
02/23/24
04:52
WBC 9.7
Hgb 7.9 L
Hct 23.1 L
Plt Count 225
Sodium 131 L
Potassium 3.7
Chloride 97 L
Carbon Dioxide 23
BUN 8
Creatinine 0.5 L
Glucose 75
Calcium 8.2 L
Total Bilirubin 0.6
AST 43 H
ALT 21
Alkaline Phosphatase 63
Vital Signs:
Vital Signs
Temp Pulse Resp BP Pulse Ox
98.5 F 96 18 141/79 96
02/23/24 10:04 02/23/24 10:04 02/23/24 08:07 02/23/24 08:07 02/23/24 08:07
I&O
11/06/24 11/07/24 11/08/24
06:59 06:59 06:59
Intake Total 3125 / 3125 1240 / 1240
Output Total 376 / 376
Balance 3125 / 3125 864 / 864
Physical Exam
-
General: Well Developed and No Apparent Distress
HEENT: Normocephalic, Atraumatic and Moist Mucous Membranes
Respiratory: Clear to Auscultation
Cardiac: Regular Rhythm and S1/S2; Negative Murmur, Rub or Gallop
GI: Soft, Nontender, Nondistended and Normal Bowel Sounds; Negative Organomegaly
Rectal: Deferred by Provider
Musculoskeletal: No Clubbing, No Cyanosis and No Edema
Skin: Negative Rash
Neuro: Nonfocal/Grossly Intact
[2024-02-23 15:03] VITALS: BP 153/81; PULSE 98; O2SAT 100
[2024-02-23 15:07] VITALS: BP 153/81; PULSE 98; O2SAT 100
[2024-02-23 15:43] VITALS: BP 155/80
[2024-02-23] MEDS: TYLENOL 650 MG PO (18:41)
[2024-02-23 19:20] VITALS: BP 130/69
[2024-02-23] MEDS: VITAMIN B1 100 MG PO (21:10)
[2024-02-23 23:37] VITALS: BP 152/80
[2024-02-24 03:05] VITALS: BP 167/96
[2024-02-24 03:28] VITALS: BP 160/90
[2024-02-24] MEDS: SYNTHROID 50 MCG PO (05:01)
[2024-02-24 05:38] LABS: % Basophils 0.6 % (0-2); % Eosinophils 2.3 % (0-6); % Immature Granulocytes 1.1 % (0-0.5); % Monocytes 9.8 % (1.7-9.3); % Neutrophils 67.2 % (42.2-75.2); Absolute Eosinophils 0.2 10^3/uL (0-0.7); Absolute Immature Granulocytes 0.1 10^3/uL (0-0.05); Absolute Lymphocytes 1.3 10^3/uL (1.2-3.4); Absolute Monocytes 0.7 10^3/uL (0.1-0.6); Absolute Neutrophils 4.7 10^3/uL (1.4-6.5); Hematocrit 26.2 % (37.0-47.0); Hemoglobin 8.9 g/dL (12.0-16.0); Mean Corpuscular Hgb 32.4 pg (27.0-31.0); Mean Corpuscular Volume 95.3 fL (81.0-99.0); Mean Platelet Volume 9.5 fL (7.4-10.4); Nucleated Red Blood Cells % 0 %; Platelet Count 231 10^3/uL (130-400); Red Blood Cell Count 2.75 10^6/uL (4.20-5.40); Red Cell Dist. Width 15.4 % (11.5-14.5)
[2024-02-24 06:00] LABS: ALT (SGPT) 21 U/L (0-35); AST (SGOT) 43 U/L (14-36); Albumin 3.4 g/dl (3.5-5.0); Alkaline Phosphatase 63 U/L (38-126); Blood Urea Nitrogen 7 mg/dl (7-17); Calcium 8.8 mg/dl (8.4-10.2); Carbon Dioxide 26 mmol/L (22-30); Chloride 96 mmol/L (98-107); Estimated Creatinine Clearance 73 ml/min; Glucose 90 mg/dl (70-99); Potassium 3.6 mmol/L (3.5-5.1); Sodium 132 mmol/L (135-145); Total Bilirubin 0.5 mg/dl (0.2-1.3); Total Protein 6.1 g/dl (6.3-8.2); eGFR > 60.00
[2024-02-24 08:51] VITALS: BP 143/82
[2024-02-24] MEDS: VITAMIN D3 (cholecalciferol) 25 MCG PO (10:34)
[2024-02-24] MEDS: VITAMIN B1 100 MG PO (10:34)
[2024-02-24] MEDS: COLACE PO (10:35)
[2024-02-24] MEDS: LEXAPRO 20 MG PO (10:35)
[2024-02-24] MEDS: FOLVITE 1 MG PO (10:36)
--- NOTE | 2024-02-24 10:36 | CM ---
Reviewed the chart notes and spoke with the patient at the bedside. IMM reviewed. The patient anticipates being discharged to home with VN services. CM continues to be available to patient/family and is monitoring medical plan for needs at
discharge.
Plan: Discharge to home with VN services.
[2024-02-24 12:24] VITALS: BP 147/75
--- NOTE | 2024-02-24 13:47 | W.DS.TRANS ---
DC Summary - Customs Director
-
Discharge Instructions:
Discharge Diagnosis/Procedures Impression:
Syncope suspect secondary to alcohol
intoxication.
Severe alcohol use disorder at risk for alcohol
withdrawal.
Hyponatremia.
Mild metabolic ketoacidosis/contraction
hypochloremic alkalosis
EtOH hepatitis.
Right wrist radius fracture secondary to trauma.
Other conditions:
Chronic normocytic anemia
Benign hypertension.
Depression.
Eczema
Diet Regular
Instructions:
Stand-Alone Forms:
Changes to Home Medications: No
Discharge Medications:
DC Medications w/original date entered in [employer]
cholecalciferol (vitamin D3) 25 mcg (1,000 unit) tablet (Vitamin D3) 25 mcg PO DAILY Supplement 02/20/24
dupilumab 300 mg/2 mL subcutaneous pen injector (Dupixent) 300 mg SC Q2W eczema 02/20/24
escitalopram oxalate 20 mg tablet 20 mg PO DAILY Depression 02/20/24
folic acid 1 mg tablet 1 mg PO DAILY Supplement 02/20/24
ibuprofen 200 mg tablet (Advil) 200 mg PO Q6HPRN PRN mild pain 02/20/24
levothyroxine 50 mcg tablet 50 mcg PO DAILY Thyroid 02/20/24
lisinopril 30 mg tablet 30 mg PO HS Blood Pressure 02/20/24
Home Medication Changes
Pending Results: No
[2024-02-24] MEDS: FLUAD (65 yr+) 2024-2025 FORMULA 0.5 ML IM (14:17)
== END 2024-02-24 15:17 | disposition home health service (06) | DRG 511 ==
LOC: 2 SOUTH 22:10
PROVIDERS: Clinical Nurse Specialist Family Health; Emergency Medicine; Orthopaedic Surgery; ADMITTING PHYSICIAN Hospitalist; ATTENDING PHYSICIAN Internal Medicine; CONSULT PHYSICIAN Student in an Organized Health Care Education/Training Program; EMERGENCY PHYSICIAN Student in an Organized Health Care Education/Training Program; FAMILY PHYSICIAN Family Medicine
PROC: 0PSH04Z Reposition Right Radius with Internal Fixation Device, Open Approach (ICD-10-PCS; 2024-02-20)
DX: S52.501A Unspecified fracture of the lower end of right radius, initial encounter for closed fracture (principal); E87.1 Hypo-osmolality and hyponatremia; E87.4 Mixed disorder of acid-base balance; S52.611A Displaced fracture of right ulna styloid process, initial encounter for closed fracture; W01.0XXA Fall on same level from slipping, tripping and stumbling without subsequent striking against object, initial encounter; F10.229 Alcohol dependence with intoxication, unspecified; D64.9 Anemia, unspecified; E03.9 Hypothyroidism, unspecified; F32.A Depression, unspecified; I10 Essential (primary) hypertension; K70.10 Alcoholic hepatitis without ascites; Y90.1 Blood alcohol level of 20-39 mg/100 ml; E86.1 Hypovolemia; E87.8 Other disorders of electrolyte and fluid balance, not elsewhere classified; I95.1 Orthostatic hypotension; L30.9 Dermatitis, unspecified; M17.12 Unilateral primary osteoarthritis, left knee; Z79.890 Hormone replacement therapy; Z79.899 Other long term (current) drug therapy; Z87.891 Personal history of nicotine dependence; Z82.49 Family history of ischemic heart disease and other diseases of the circulatory system
CPT/HCPCS: 70450; 73110; 76000; 80053; 80061; 80162; 80306; 80307; 81003; 82010; 82077; 82607; 82746; 82962; 82977; 83540; 83550; 83735; 84100; 84443; 84484; 85025; 85027; 85610; 85730; 86850; 86900; 86901; 90662; 93005; 93306; 97116; 97162; 97167; 97535; 99285; C1713; G0008